=== PATIENT | female | born 1940 | race Caucasian/White ===

== ENCOUNTER 2021-12-29 20:00 | Emergency (ER) | payer MEDICARE ==
[~2021-12-29] VITALS: Ht 152.4 cm; Wt 90.9 kg
[~2021-12-29 20:00] MED LIST: ALBU18HF2 INH; ESCI-8 PO; FLUT16SP2 BOTHNARES; HYDR-3965 PO; HYDR25TA5 PO; LORA2TAB96 PO; LOSA50TA64 PO; OMEP20CA16 PO
[2021-12-29 20:32] LABS: CLARITY,URINE CLEAR (Clear); COLOR,URINE YELLOW (Yellow); GLUCOSE, URINE NEGATIVE (Neg); KETONES,URINE 40 mg/dl (Neg); LEUKOCYTE ESTERASE ,URINE NEGATIVE (Neg); NITRITES, URINE NEGATIVE (Neg); OCCULT BLOOD,URINE TRACE-INTACT (Neg); PROTEIN,URINE NEGATIVE (Neg); UROBILINOGEN,URINE 0.2 E.U/dL (0.2-1.0)
[2021-12-29 20:33] LABS: UA COLLECTION TYPE CLN CATCH MIDSTREAM
[2021-12-29 20:34] LABS: BACTERIA,URINE NONE SEEN /HPF (Neg); RBC,URINE 0-2 /HPF (0-2); SQUAMOUS EPITHELIAL CELL,UR FEW /LPF (FEW); WBC,URINE NONE SEEN /HPF (0-4)
[2021-12-29 20:56] LABS: BASOPHILS # (AUTO) 0.1 X10'3 (0-0.2); BASOPHILS % (AUTO) 1.1 % (0-1); EOSINOPHILS % (AUTO) 0 % (0-6); HEMATOCRIT 46.1 % (35.0-45.0); HEMOGLOBIN 15.8 g/dl (12.0-16.0); LYMPHOCYTES # (AUTO) 0.9 X10'3 (1.1-4.8); LYMPHOCYTES % (AUTO) 8.6 % (21-51); MEAN CORPUSCULAR HEMOGLOBIN 31.9 PG (27.0-31.0); MEAN CORPUSCULAR HGB CONC 34.3 g/dL (33.0-36.5); MEAN CORPUSCULAR VOLUME 92.8 FL (78-98); MEAN PLATELET VOLUME 8.3 FL (7.4-10.4); MONOCYTES # (AUTO) 0.1 X10'3 (0-0.9); MONOCYTES % (AUTO) 0.8 % (2-12); NEUTROPHILS # (AUTO) 9.4 X10'3 (1.8-7.7); NEUTROPHILS % (AUTO) 89.5 % (42-75); PLATELET COUNT 249 X10'3 (140-440); RED BLOOD COUNT 4.97 X10'6 (4.20-5.60); RED CELL DISTRIBUTION WIDTH 13.1 % (11.5-14.5); WHITE BLOOD COUNT 10.5 X10'3 (4.5-11.0)
[2021-12-29 21:04] LABS: ALANINE AMINOTRANSFERASE 30 U/L (12-78); ALBUMIN 3.8 G/DL (3.4-5.0); ALBUMIN/GLOBULIN RATIO 0.9 (1.1-1.5); ALKALINE PHOSPHATASE 119 IU/L (46-116); ANION GAP 10 (8-16); ASPARTATE AMINO TRANSFERASE 23 U/L (10-37); BILIRUBIN,TOTAL 0.7 MG/DL (0.1-1.0); BLOOD UREA NITROGEN 8 MG/DL (7-18); BUN/CREATININE RATIO 11.9 (6.6-38.0); CALCIUM 9.2 MG/DL (8.5-10.1); CHLORIDE 99 MMOL/L (99-107); CREATININE 0.67 MG/DL (0.40-0.90); GLUCOSE 159 MG/DL (70-104); LIPASE 72 U/L (73-393); POTASSIUM 3.5 MMOL/L (3.5-5.1); SODIUM 136 MMOL/L (135-145); TOTAL CARBON DIOXIDE 26.6 MMOL/L (24-32); TOTAL PROTEIN 8.1 G/DL (6.4-8.2); eGFR 85 ML/MIN
[2021-12-29] MEDS ORDERED: HYDROcodone/acetaminophen 5mg/325mg tablet PO ONE (22:15)
[2021-12-29] MEDS ORDERED: ondansetron 4mg/5ml UD cup PO ONE (22:15)
[2021-12-29] MEDS ORDERED: iohexol 350MG/ML 100ml bottle IV ONE (22:19)
[2021-12-29] MEDS ORDERED: morphine 4 MG/ML inj SYRINge IV ONE (22:35)
[2021-12-29] MEDS ORDERED: proCHLORperazine 10 MG/2 ml inj IV ONE (22:35)
[2021-12-29] MEDS ORDERED: CefTRIAXone/D5W-Rocephin 1gm 50 ML IV ONE (23:45)
[2021-12-29] MEDS ORDERED: metroNIDAZOLE-Flagyl 500mg/NS 100 ML IV ONE (23:45)
[2021-12-29] MEDS ORDERED: ringers solution, lactated 1000ml IV soln IV ONE (23:45)
[2021-12-30] MEDS ORDERED: morphine 4 MG/ML inj SYRINge IV ONE (01:15)
[2021-12-30] MEDS ORDERED: ondansetron/PF 4mg/2ml inj IV ONE (01:15)
[2021-12-30] MEDS ORDERED: ONDA4TAB12 PO ×3 (02:39→02:55)
[2021-12-30] MEDS ORDERED: AMOX-117 PO ×2 (02:39→02:55)
[2021-12-30 02:52] VITALS: BP 128/84
== END 2021-12-30 02:55 | disposition home or self-care (01) ==
LOC: ER 20:00
DX: K57.92 Diverticulitis of intestine, part unspecified, without perforation or abscess without bleeding (principal); Z79.899 Other long term (current) drug therapy
CPT/HCPCS: 36415; 74177; 80053; 81001; 83690; 85025; 96365; 96367; 96375; 96376; 99285; J0696; J0780; J2270; J2405; J3490; J7120; Q9967